=== PATIENT | female | born 1980 ===

== ENCOUNTER 2022-12-15 08:15 | Inpatient (IN) | payer OTHER ==
[~2022-12-15] VITALS: Ht 152.4 cm; Wt 87.1 kg
[2022-12-15] MEDS ORDERED: ALLEGRA PO (10:13)
[2022-12-17] MEDS ORDERED: MONTELUKAST SOD10 MG (14:59)
[2022-12-17] MEDS ORDERED: ALLEGRA ALLERGY60 MG (14:59)
[2022-12-18] MEDS ORDERED: NAPR500T14 PO (09:05)
[2022-12-18] MEDS ORDERED: Tylenol #3 PO (09:05)
== END 2022-12-18 10:16 | disposition home or self-care (01) | DRG 743 ==
LOC: O/R 12-17 07:45 → OB/GYN 12-17 08:15
PROVIDERS: ADMIT Obstetrics & Gynecology; ATTEND Obstetrics & Gynecology
PROC: 0JQC0ZZ Repair Pelvic Region Subcutaneous Tissue and Fascia, Open Approach (ICD-10-PCS; 2022-12-17)
PROC: 0USG4ZZ Reposition Vagina, Percutaneous Endoscopic Approach (ICD-10-PCS; 2022-12-17)
PROC: 0UT9FZZ Resection of Uterus, Via Natural or Artificial Opening With Percutaneous Endoscopic Assistance (ICD-10-PCS; principal; 2022-12-17 12:15)
DX: D25.1 Intramural leiomyoma of uterus (principal); N72 Inflammatory disease of cervix uteri; N84.0 Polyp of corpus uteri; Z20.822 Contact with and (suspected) exposure to COVID-19; N81.11 Cystocele, midline